=== PATIENT | male | born 2000 | race Caucasian/White ===

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

== ENCOUNTER 2020-01-01 20:10 | Emergency (ER) | payer SELFPAY ==
[~2020-01-01] VITALS: Ht 185.4 cm; Wt 65.8 kg
[2020-01-01 20:52] VITALS: BP 134/87
== END 2020-01-01 23:06 | disposition home or self-care (01) ==
LOC: ED 20:10
DX: S62.316B Displaced fracture of base of fifth metacarpal bone, right hand, initial encounter for open fracture (principal); S62.304A Unspecified fracture of fourth metacarpal bone, right hand, initial encounter for closed fracture; F31.9 Bipolar disorder, unspecified; W22.8XXA Striking against or struck by other objects, initial encounter; Y93.89 Activity, other specified; Y92.89 Other specified places as the place of occurrence of the external cause; Y99.8 Other external cause status

== ENCOUNTER 2021-04-29 20:58 | Emergency (ER) | payer SELFPAY ==
[~2021-04-29] VITALS: Wt 70.3 kg
[2021-04-29 21:31] VITALS: BP 132/70
== END 2021-04-29 21:48 | disposition left against medical advice (07) ==
LOC: ED 20:58
DX: R50.9 Fever, unspecified (principal); R05 Cough; Z53.21 Procedure and treatment not carried out due to patient leaving prior to being seen by health care provider

== ENCOUNTER 2023-03-20 16:04 | Emergency (ER) | payer SELFPAY ==
[~2023-03-20] VITALS: Ht 182.8 cm; Wt 72.6 kg
[2023-03-20 16:28] VITALS: BP 120/76
== END 2023-03-20 17:38 | disposition left against medical advice (07) ==
LOC: ED 16:04
DX: M54.50 Low back pain, unspecified (principal); Z88.1 Allergy status to other antibiotic agents; Z88.8 Allergy status to other drugs, medicaments and biological substances; Z53.21 Procedure and treatment not carried out due to patient leaving prior to being seen by health care provider